=== PATIENT | male | born 1980 | race Caucasian/White ===

== ENCOUNTER → 2021-05-02 10:31 | Outpatient (CLI) | payer OTHER, SELFPAY | PROVIDERS: PCP Family Medicine; Visit Provider Physician Assistant | DX: Z20.822 Contact with and (suspected) exposure to COVID-19 (principal) | CPT/HCPCS: C9803; U0003; U0005 ==

== ENCOUNTER 2024-03-17 16:11 | Emergency (ER) | payer OTHER, SELFPAY ==
[2024-03-17 16:16] VITALS: BP 133/78; PULSE 70; RESP 18; TEMP 37.1; O2SAT 100; BMI 23.1
--- NOTE | 2024-03-17 16:30 | PC.NURSE ---
ASSESSMENT pt taken to RM #4 @7127 pt c/o RLQ pain that radiates to his umbilicus since 929. pt states he pain is 5/10 and better when he stands. pt states he has been febrile. pt sent over by Debra VELAZQUEZ.
--- NOTE | 2024-03-17 16:34 | PC.NURSE ---
PT TRANSFERRED TO ROOM 4 AT THIS TIME FOR FURTHER EVALUATION. PT PLACED IN GOWN. WARM BLANKET PROVIDED. CALL LIGHT WITHIN REACH
[2024-03-17 16:37] VITALS: BP 129/84; PULSE 63; PULSE 65; RESP 18; TEMP 36.8; O2SAT 98; O2SAT 99
[2024-03-17 16:46] LABS: Basophils % 0.4 % (0.1-2.0); Eosinophils # 0.3 K/mm3 (0.0-0.4); Eosinophils % 2.8 % (0.1-12.0); Hematocrit 41.7 % (42.0-52.0); Hemoglobin 15.3 g/dL (14.1-18.0); Lymphocytes # 1.6 K/mm3 (0.7-4.5); Lymphocytes % 14.4 % (10-50); Mean Corpuscular HGB Conc 36.7 g/dL (31.8-35.4); Mean Corpuscular Hemoglobin 32.4 pg (27.0-31.2); Mean Corpuscular Volume 88.3 fl (80-94); Monocytes # 0.8 K/mm3 (0.1-1.0); Monocytes % 7.5 % (1.7-9.3); Neutrophils # 8.1 K/mm3 (1.8-7.8); Neutrophils % 74.7 % (37.0-80.0); Platelet Count 113 K/mm3 (142-424); Red Blood Count 4.72 M/mm3 (4.60-6.20); Red Cell Distribution Width 11.8 % (11.5-17.5); White Blood Count 10.8 K/mm3 (4.8-10.8)
--- NOTE | 2024-03-17 16:56 | CT_ITS ---
PROCEDURE INFORMATION: Exam: CT Abdomen And Pelvis With Contrast Exam date and time: 03/17/2024 5:19 PM Age: 44 years old Clinical indication: Abdominal pain; Other: Lower pain; Additional info: Lower abdominal pain TECHNIQUE: Imaging protocol: Computed tomography of the abdomen and pelvis with contrast. Radiation optimization: All CT scans at this facility use at least one of these dose optimization techniques: automated exposure control; mA and/or kV adjustment per patient size (includes targeted exams where dose is matched to clinical indication); or iterative reconstruction. Contrast material: ISOVUE; Contrast volume: 75 ml; Contrast route: IV; COMPARISON: No relevant prior studies available. FINDINGS: Liver: Normal. No mass. Gallbladder and biliary ducts: Normal. No calcified stones. No ductal dilation. Pancreas: Normal. No ductal dilation. Spleen: Normal. No splenomegaly. Adrenal glands: Normal. No mass. Kidneys and ureters: 18 mm simple cortical cyst of the left kidney noted. No further follow-up indicated. Right kidney appears normal. No hydronephrosis. Stomach and bowel: Unremarkable. No obstruction. No mucosal thickening. Appendix: No evidence of appendicitis. Intraperitoneal space: Unremarkable. No free air. No significant fluid collection. Vasculature: Unremarkable. No abdominal aortic aneurysm. Lymph nodes: Unremarkable. No enlarged lymph nodes. Urinary bladder: Unremarkable as visualized. Reproductive: Unremarkable as visualized. Bones/joints: Osseous alignment is normal. No vertebral body compression. Moderate degenerative disc space narrowing with disc bulge at the L4-L5 level, producing moderate narrowing of the bilateral L4 neural foramina and mild central canal stenosis. No acute fracture. Soft tissues: Unremarkable. IMPRESSION: No acute abnormality. COMMENTS: Consistent with the [employer]'s Incidental Findings Committee white paper (J Am Jinny Radiol 2018): Any incidental renal lesion less than 1 cm or classified as too small to characterize, or any incidental cystic renal lesion characterized as simple-appearing, is likely benign. No follow-up imaging is recommended for these lesions per consensus recommendations based on imaging criteria.
--- NOTE | 2024-03-17 16:57 | ED_ITS ---
<Statement entered by Rosio Lewis DO - 03/17/24 23:25> I was consulted by the MARIELA, and we discussed the complexity of the problems being addressed. I approved the treatment and management plan for this patient's care in the emergency department, thus performing a substantive portion of the medical decision making. Rosio Lewis DO Discharge Plan Disposition Patient Disposition: Home, Self-Care Condition: Good Prescriptions Prescriptions: New ondansetron 4 mg tablet,disintegrating 4 mg PO Q6H PRN (Reason: nausea and vomiting) Qty: 10 0RF Referrals Follow up/Referrals: Josefina Fleming PA [Primary Care Provider] - See instructions Activity Restrictions/Add. Instructions Additional Instructions/Restrictions: Return to the emergency department with any worsening signs or symptoms any nausea or vomiting, inability to keep down solids or liquids, any worsening pain. Please follow-up with your PCP, utilize antinausea medicine and anti- inflammatory medicines for pain. Clinical Impressions Clinical Impression: Cyst of left kidney, Abdominal pain Instructions Patient Instructions: DI for Acute Abdominal Pain Print Language Print Language: Swedish Discharge ED Provider: Rosio Lewis General Adult HPI General Chief complaint: Abdominal Pain Stated complaint: sent by Ludwig Fleming for abd pain Time Seen by Provider: 03/17/24 16:52 Mode of Arrival: Ambulatory Source of Information: Patient Limitations: No Limitations Description of Symptoms (Recalled from ER Triage Doc. by RN): Patient was sent by his family care provider. States he started having abdominal pain this morning around 0900. Stated it originally started in his right mid-abdomen. States now it is right lower quadrant and tender to touch. Patient retains all his abdominal organs. Denies N/V. Denies diarrhea. Endorses discomfort with urination. History of Present Illness HPI narrative: 44-year-old male presents to the emergency department at the request of his primary care provider for right lower/lower abdominal quadrant pain that started around 9 or 9:30 AM this morning, he admits to subjective fever and chills no cough congestion or sore throat no chest pain no shortness of breath, no nausea no vomiting no constipation no diarrhea, no hematuria no melena hematochezia or hematemesis, urinary type symptomatology, with the exception of some discomfort but no real dysuria. Patient has no real relevant past medical history takes no other medications at home, is otherwise very healthy exercises frequently, denies any tobacco alcohol or drug use. Initial triage vitals unremarkable. Related Data Previous Rx's ?Medication ?Instructions ?Recorded ondansetron 4 mg disintegrating 4 mg PO Q6H PRN nausea and 03/17/24 tablet vomiting #10 tabs Allergies Allergy/AdvReac Type Severity Reaction Status Date / Time No Known Allergies Allergy Verified 03/17/24 16:33 PFSH [facility] Disclaimer: The information contained in this section may have been updated after the patient was seen, as this information can be updated by other users. Social History Smoking Status: Never smoker alcohol intake: never current occupational status: other Travel in the last 8 weeks: None ROS Obtained: Yes All systems reviewed & no additional complaints except as documented Physical Exam General General appearance: alert and in no apparent distress Head Head exam: atraumatic and normocephalic Eye Eye exam: Present PERRL and EOMI ENT ENT exam: Present mucous membranes moist Neck Neck exam: Present normal inspection Chest Chest inspection: Present normal inspection and symmetric chest wall rise Respiratory Respiratory exam: Present normal lung sounds bilaterally; Absent respiratory distress, wheezes or stridor Cardiovascular Cardiovascular exam: Present regular rate and normal rhythm Abdominal Exam Abdominal exam: Present soft, distention, tenderness, guarding and tenderness at McBurney's Point; Absent rigidity Abdominal tenderness: Present RLQ, LLQ, suprapubic and mild Comment: Mild voluntary guarding, there is some mild tenderness to McBurney's point, as well as RLQ and LLQ tenderness to palpation. Extremities Exam Extremities exam: Present normal inspection Back Exam Back exam: Absent CVA tenderness (R) or CVA tenderness (L) Neurological Exam Neurological exam: Present alert and oriented X3 Psychiatric Psychiatric exam: Present normal affect Skin Skin exam: Present warm and dry Medical Decision Making Medical Records Medical records reviewed: Yes I reviewed the patient's medical records. Screening: Per USPSTF and CDC recommendations, given the prevalence of disease in our region, it is our hospital?s policy to screen for HIV and viral Hepatitis for all patients aged 18 and over and those with ongoing risk factors. Zhang Inquiry Pt receiving controlled substance: No Zhang was queried for this patient: No Vital Signs: 03/17/24 16:16 03/17/24 16:37 03/17/24 16:37 Temperature 98.7 F 98.3 F Temperature Source Oral Pulse Rate 65 63 Pulse Rate [Radial] 70 Respiratory Rate 18 18 Blood Pressure 129/84 129/84 Blood Pressure [Right Arm] 133/78 Blood Pressure Mean [Right Arm] 96 Blood Pressure Source [Right Arm] Automatic Cuff Blood Pressure Position [Right Arm] Sitting 02 Sat by Pulse Oximetry 100 99 98 Oxygen Delivery Method Room Air Room Air 03/17/24 17:00 Temperature Temperature Source Pulse Rate 64 Pulse Rate [Radial] Respiratory Rate Blood Pressure 126/82 Blood Pressure [Right Arm] Blood Pressure Mean [Right Arm] Blood Pressure Source [Right Arm] Blood Pressure Position [Right Arm] 02 Sat by Pulse Oximetry 99 Oxygen Delivery Method Room Air Lab Data Lab results reviewed: Yes I reviewed the patient's lab results. Lab Results 03/17/24 16:24: WBC 10.8, RBC 4.72, Hgb 15.3, Hct 41.7 L, MCV 88.3, MCH 32.4 H, MCHC 36.7 H, RDW 11.8, Plt Count 113 L, MPV 11.0 H, Neut % (Auto) 74.7, Lymph % (Auto) 14.4, [place] % (Auto) 7.5, Eos % (Auto) 2.8, Baso % (Auto) 0.4, Neut # (Auto) 8.1 H, Lymph # (Auto) 1.6, [place] # (Auto) 0.8, Eos # (Auto) 0.3, Baso # (Auto) 0.0, Sodium 140, Potassium 3.8, Chloride 100, Carbon Dioxide 31 H, Anion Gap 12.8, BUN 21 H, Creatinine 1.40 H, Estimated Creat Clear 70, Estimated GFR 55 L, Est GFR ( Amer) 66, Glucose 106 H, Lactate 0.8, Calcium 9.5, Total Bilirubin 1.3, AST 49, ALT 36, Alkaline Phosphatase 48, Total Protein 7.5, A lbumin 5.2 H, Globulin 2.3, Albumin/Globulin Ratio 2.3 H, Lipase 94, HCV Ab DIPTI w/Rflx PCR Qn Negative, HIV Ag/Ab Combo Qual Negative 03/17/24 17:25: Urine Color Yellow, Urine Appearance Clear, Urine pH 7.0, Ur Specific [place] <= 1.005, Urine Protein Negative, Urine Glucose (UA) Negative, Urine Ketones Negative, Urine Blood Negative, Urine Nitrate Negative, Urine Bilirubin Negative, Urine Urobilinogen 0.2, Ur Leukocyte Esterase Negative 03/17/24 16:24 03/17/24 16:24 Orders (Tests/Meds): ED MEDICATIONS Discontinued Medications Generic Name Dose Route Start Last Admin Trade Name Freq PRN Reason Stop Dose Admin Iopamidol 75 ml 03/17/24 17:23 03/17/24 17:24 Iopamidol-370 (76%);100ml Bottle IV 03/17/24 17:24 75 ml ONCE ONE Administration Ketorolac Tromethamine 15 mg 03/17/24 17:05 03/17/24 17:10 Ketorolac 30mg/Ml Vial IV 03/17/24 17:06 15 mg ONCE ONE Administration Ondansetron HCl 4 mg 03/17/24 16:57 03/17/24 17:10 Ondansetron 4mg/2ml Vial IV 03/17/24 16:58 4 mg ONCE ONE Administration Sodium Chloride 10 ml 03/17/24 17:23 03/17/24 17:24 Sodium Chloride 0.9% 10ml Syr (Rad Only) IV 03/17/24 17:24 10 ml ONCE ONE Administration ORDERS Category Date Time Status CT abdomen pelvis w con Stat Cat Scan 03/17/24 16:56 Completed Complete Blood Count Auto Diff Stat Lab 03/17/24 16:24 Completed Comprehensive Metabolic Panel Stat Lab 03/17/24 16:24 Completed HIV Combo Stat Lab 03/17/24 16:24 Completed Hepatitis C Ab Qual. W/ RFX Stat Lab 03/17/24 16:24 Completed Lactic Acid Stat Lab 03/17/24 16:24 Completed Lipase Stat Lab 03/17/24 16:24 Completed Urinalysis and Microscopic Stat Lab 03/17/24 17:25 Results Medical Decision Narrative: 44-year-old male presents to the emergency department with lower quadrant abdominal pain, see HPI for detail past medical history, differential diagnose include but not limited to pancreatitis, appendicitis, cholelithiasis, cholecystitis, diverticulitis, colitis, ileitis, gastritis, UTI, nephrolithiasis, ureterolithiasis, bowel obstruction, volvulus, ileus. Case discussed with attending physician Dr. Lewis Will obtain basic laboratory studies, lactate lipase urinalysis, will obtain CT abdomen pelvis with contrast for further evaluation as characterization give 2 mg IV morphine for pain, 4 mg IV Zofran for nausea. CBC unremarkable. Was notified by nursing staff that the patient refused morphine administration. CMP is notable for elevated BUN at 21 elevated creatinine at 1.4 otherwise unremarkable. Offered patient Toradol administration for pain he accepted. Will give 15 mg IV Toradol. Lactate and lipase within normal limit Urinalysis unremarkable. I reviewed the patient's CT abdomen pelvis with contrast along with the corresponding radiologic report no acute abnormality. I discussed the results with the patient and family at the bedside patient and family are to be discharged home to self-care, treat ED return precaution given to the patient family bedside they will follow-up PCP as directed, I will prescribe 4 mg p.o. Zofran as needed for nausea recommend NSAIDs other anti- inflammatory medications for pain. Patient Hawk voiced understand agree with current treatment plan/discharge plan. Critical Care Critical Care Time Critical Care Time: No
[2024-03-17 16:59] LABS: Alanine Aminotransferase 36 U/L (12-78); Albumin Level 5.2 g/dl (3.5-5.0); Albumin/Globulin Ratio 2.3 (1.1-1.8); Alkaline Phosphatase 48 U/L (38-126); Anion Gap 12.8 mEq/L (5-15); Aspartate Amino Transferase 49 U/L (17-59); Bilirubin,Total 1.3 mg/dl (0.2-1.3); Blood Urea Nitrogen 21 mg/dl (9-20); Calcium 9.5 mg/dl (8.4-10.2); Carbon Dioxide 31 mmol/L (22.0-30.0); Chloride 100 mmol/L (98-107); Creatinine Clearance Estimated 70 mL/min (50-200); Estimated Glomerular Filt Rate 55 ml/min (>60); GFR (African American) 66 ML/MIN (>60); Globulin 2.3 g/dL (1.3-3.2); Glucose 106 mg/dl (74-100); Lipase 94 U/L (23-300); Potassium 3.8 mmoL/L (3.5-5.1); Sodium 140 mmol/L (136-145); Total Protein,Serum 7.5 g/dl (6.3-8.2)
[2024-03-17 17:00] VITALS: BP 126/82; PULSE 64; O2SAT 99
[2024-03-17 17:00] LABS: Lactic Acid 0.8 mmol/L (0.7-2.1)
[2024-03-17] MEDS: ONDANSETRON 4MG/2ML VIAL 4 MG IV (17:10)
[2024-03-17] MEDS: KETOROLAC 30MG/ML VIAL 15 MG IV (17:10)
[2024-03-17] MEDS: IOPAMIDOL-370 (76%);100ML BOTTLE 75 ML IV (17:24)
[2024-03-17] MEDS: SODIUM CHLORIDE 0.9% 10ML SYR (RAD ONLY) 10 ML IV (17:24)
[2024-03-17 17:30] LABS: Microscopic, Urine URINE MICROSCOPIC (MICROSCOPIC)
[2024-03-17 17:42] LABS: HIV Combo NEGATIVE (Negative)
[2024-03-17 17:43] LABS: Appearance,Urine CLEAR (Clear); Bilirubin,Urine Negative (Negative); Blood, Urine Negative (Negative); Color,Urine YELLOW (Yellow); Glucose,Urine (UA) Negative (Negative); Ketones,Urine Negative (Negative); Leukocyte Esterase,Urine Negative (Negative); Nitrate,Urine Negative (Negative); Protein,Urine Negative (Negative); Specific Gravity, Urine <= 1.005 (1.005-1.030); Urobilinogen,Urine 0.2 EU/dl (0.2)
[2024-03-17 17:46] LABS: Hepatitis C Ab Qual. W/ RFX NEGATIVE (Negative)
[2024-03-17 18:30] VITALS: BP 126/82; PULSE 64; RESP 18; TEMP 36.8; O2SAT 99
[2024-03-17 19:28] LABS: Squamous Epithelial Cell,Urine Occasional #/hpf (0-5)
== END 2024-03-17 18:31 | disposition home or self-care (01) ==
PROVIDERS: Emergency Provider Emergency Medicine; PCP Physician Assistant
DX: N28.1 Cyst of kidney, acquired (principal); R10.31 Right lower quadrant pain; R50.9 Fever, unspecified
CPT/HCPCS: 74177; 80053; 81001; 83605; 83690; 85025; 86803; 87389; 96374; 96375; 99285; J1885; J2405; Q9967